=== PATIENT | male | born 1975 | race Caucasian/White ===

== ENCOUNTER 2018-11-07 11:56 | Emergency (ER) | payer MEDICARE ==
[~2018-11-07] VITALS: Ht 185.4 cm; Wt 111.4 kg
[2018-11-07 11:59] VITALS: TEMP 97.6
[2018-11-07 12:42] LABS: HEMATOCRIT 44.2 % (42.0-52.0); HEMOGLOBIN 14.3 g/dl (13.5-18.0); MEAN CELL VOLUME 93 fl (80.0-100.0); MEAN CORPUSCULAR HEMOGLOBIN 30 pg (27.0-31.0); MEAN CORPUSCULAR HGB CONC 32 g/dl (33.0-37.0); MEAN PLATELET VOLUME 10.9 fl (7.4-10.4); PLATELET COUNT 240 K/mm3 (130-400); RED BLOOD COUNT 4.73 M/mm3 (4.20-5.60); REDCELL DISTRIBUTION WIDTH-CV 13.2 % (11.5-14.5)
[2018-11-07 12:47] LABS: ALANINE AMINOTRANSFERASE 32 U/L (21-72); ALKALINE PHOSPHATASE 73 U/L (50-136); ANION GAP 12 mmol/L (7-16); AST,SGOT 25 U/L (15-37); BILIRUBIN,TOTAL 0.3 mg/dL (0.0-1.0); BLOOD UREA NITROGEN 16 mg/dL (9-20); CALCIUM 9.1 mg/dL (8.4-10.2); CARBON DIOXIDE 23 mmol/L (22-30); CHLORIDE 105 mmol/L (98-107); CREATININE, serum 1.04 (0.66-1.25); GLUCOSE 110 mg/dL (74-106); LIPASE 80 U/L (23-300); POTASSIUM 3.9 mmol/L (3.4-5.0); SODIUM 140 mmol/L (137-145); TOTAL PROTEIN 7.4 gm/dL (6.4-8.2)
[2018-11-07 13:01] LABS: TROPONIN-I < 0.012 ng/mL (0.000-0.035)
[2018-11-07] MEDS ORDERED: PREDNISONE20 MG PO (13:08)
[2018-11-07] MEDS ORDERED: PROAIR HFA0.09 MG/AC IH (13:08)
[2018-11-07] MEDS ORDERED: FLOVENT 110MCG7.9 GM IH (13:09)
[2018-11-07 13:25] LABS: INR 0.9 (0.8-3.0); PROTHROMBIN TIME 10.4 SECONDS (9.7-12.8)
[2018-11-07 13:35] LABS: BASOPHIL 1 % (0-2); EOSINOPHIL 5 % (0-4); LYMPHOCYTE 47 % (20.0-51.0); NEUTROPHILS 41 % (42.0-75.2); PLATELET ESTIMATE NORMAL (NORMAL)
[2018-11-07 13:41] LABS: D-DIMER < 200.00 ng/mLDDu (200-230)
[2018-11-07] MEDS ORDERED: DOXYCYCLINE 10100 MG PO (15:07)
[2018-11-07 17:45] VITALS: BP 113/70; PULSE 56
== END 2018-11-07 17:50 | disposition home or self-care (01) ==
LOC: COL.ER 11:56
PROVIDERS: Emergency Medicine
DX: R06.02 Shortness of breath (principal); F17.210 Nicotine dependence, cigarettes, uncomplicated
CPT/HCPCS: J2930; J3475; J7030

== ENCOUNTER 2018-11-15 12:23 | Day surgery (SDC) | payer MEDICARE ==
[2018-11-15] VITALS (7 sets, daily range): BP systolic 100–114; BP diastolic 70–78; PULSE 51–57; TEMP 97.8
[~2018-11-15] VITALS: Ht 185.4 cm; Wt 113.0 kg
[~2018-11-15 12:23] MED LIST: DOXYCYCLINE 10100 MG PO; FLOVENT 110MCG7.9 GM IH; PREDNISONE20 MG PO; PROAIR HFA0.09 MG/AC IH
[2018-11-15] MEDS ORDERED: PROAIR HFA0.09 MG/AC IH (12:34)
[2018-11-15] MEDS ORDERED: DEPAKOTE ER 50500 MG PO (12:36)
[2018-11-15] MEDS ORDERED: NATURAL POTASS595 MG PO (12:36)
[2018-11-15] MEDS ORDERED: LYRICA 150MG C150 MG PO (12:38)
[2018-11-15] MEDS ORDERED: AMITRIPTYLINE H50 M1 PO (12:39)
[2018-11-15] MEDS ORDERED: DOSTINEX0.5 MG/TAB PO (12:42)
[2018-11-15] MEDS ORDERED: INDERAL LA120 MG PO (12:43)
[2018-11-15] MEDS ORDERED: AIMOVIG AU70 MG/1 M1 SQ (12:43)
[2018-11-15] MEDS ORDERED: PERCOCET 325 MG1 TA3 PO (12:44)
[2018-11-15] MEDS ORDERED: ZYRTEC 10MG10 MG PO (12:45)
[2018-11-15] MEDS ORDERED: PRILOSEC 20MG20 MG PO (12:45)
[2018-11-15] MEDS ORDERED: ASPIRIN E.C. 8181 MG PO (12:45)
[2018-11-15] MEDS ORDERED: PLAVIX 75MG TAB75 MG PO (12:46)
[2018-11-15 13:27] LABS: HEMATOCRIT 43.7 % (42.0-52.0); HEMOGLOBIN 14.3 g/dl (13.5-18.0); MEAN CELL VOLUME 92 fl (80.0-100.0); MEAN CORPUSCULAR HEMOGLOBIN 30 pg (27.0-31.0); MEAN CORPUSCULAR HGB CONC 33 g/dl (33.0-37.0); MEAN PLATELET VOLUME 10.9 fl (7.4-10.4); PLATELET COUNT 217 K/mm3 (130-400); RED BLOOD COUNT 4.74 M/mm3 (4.20-5.60); REDCELL DISTRIBUTION WIDTH-CV 13.4 % (11.5-14.5)
[2018-11-15 13:38] LABS: CALCIUM 9.2 mg/dL (8.4-10.2); INR 0.9 (0.8-3.0); POTASSIUM 4.2 mmol/L (3.4-5.0); PROTHROMBIN TIME 10.4 SECONDS (9.7-12.8)
--- NOTE | 2018-11-15 14:25 | NUR ---
SEE MERGE DOCUMENTATION FOR MEDICATION ADMINISTRATION TIMES AND INTRA/POST PROCEDURE SEDATION ASSESSMENTS.
--- NOTE | 2018-11-15 17:00 | NUR ---
Discharge instructions were reviewed with pt/family. Pt/family voice understanding. Pt up and ambulating in and around the unit with no complications. Pt tolerating intake with no N/V. Pt voided with no complications. IV was discontinued with catheter tip intact, no phlebitis or infiltration. Pt was discharged via w/c to the care of family in private vehicle with discharge instructions in hand.
== END 2018-11-15 17:45 | disposition home or self-care (01) ==
LOC: COL.CAR 12:23
PROVIDERS: Internal Medicine Interventional Cardiology
DX: I20.9 Angina pectoris, unspecified (principal); R94.39 Abnormal result of other cardiovascular function study; F17.210 Nicotine dependence, cigarettes, uncomplicated; Z91.018 Allergy to other foods; Z88.8 Allergy status to other drugs, medicaments and biological substances; Z82.49 Family history of ischemic heart disease and other diseases of the circulatory system
CPT/HCPCS: J1644; J2250; J3010; Q9967

== ENCOUNTER 2019-09-30 17:07 | Inpatient (IN) | payer MEDICARE ==
[~2019-09-30] VITALS: Ht 185.4 cm; Wt 128.4 kg
[~2019-09-30 17:07] MED LIST changes: +AIMOVIG AU70 MG/1 M1 SQ; +AMITRIPTYLINE H75 M1 PO; +ASPIRIN E.C. 8181 MG PO; +DEPAKOTE ER 50500 MG PO; +DOSTINEX0.5 MG/TAB PO; +INDERAL LA120 MG PO; +LYRICA 150MG C150 MG PO; +NATURAL POTASS595 MG PO; +PERCOCET 325 MG1 TA3 PO; +PLAVIX 75MG TAB75 MG PO; +PRILOSEC 20MG20 MG PO; +ZYRTEC 10MG10 MG PO
[2019-09-30 17:53] LABS: BASO # 0.1 (0.0-0.2); BASO % 0.7 % (0.0-2.0); EOS # 0.7 (0.0-0.7); EOS % 6.3 % (0-4.0); GRAN # 5.5 (1.4-6.5); GRAN % 49.2 % (42.2-75.2); HEMATOCRIT 43.3 % (42.0-52.0); HEMOGLOBIN 14.1 g/dl (13.5-18.0); LYMPH # 3.9 (1.2-3.4); LYMPH % 35.1 % (20.0-51.0); MEAN CELL VOLUME 91 fl (80.0-100.0); MEAN CORPUSCULAR HEMOGLOBIN 30 pg (27.0-31.0); MEAN CORPUSCULAR HGB CONC 33 g/dl (33.0-37.0); MEAN PLATELET VOLUME 9.8 fl (7.4-10.4); MONO # 0.9 (0.1-0.6); MONO % 7.7 % (1.7-9.3); PLATELET COUNT 308 K/mm3 (130-400); RED BLOOD COUNT 4.76 M/mm3 (4.20-5.60); REDCELL DISTRIBUTION WIDTH-CV 13.1 % (11.5-14.5)
[2019-09-30 18:14] LABS: ERYTHROCYTE SEDIMENTATION RATE 48 mm/hr (0-15)
[2019-09-30 18:20] LABS: ALBUMIN 4.2 gm/dL (3.5-5.0); BILIRUBIN,TOTAL 0.5 mg/dL (0.0-1.0); CALCIUM 9.4 mg/dL (8.4-10.2); CREATININE, serum 1.1 (0.66-1.25); POTASSIUM 4.4 mmol/L (3.4-5.0); TOTAL PROTEIN 8.4 gm/dL (6.4-8.2)
[2019-09-30] MEDS ORDERED: CRESTOR20 MG PO (19:12)
[2019-09-30] MEDS ORDERED: TOPROL XL 50MG50 MG PO (19:12)
[2019-09-30] MEDS ORDERED: 00186-0370-20 IH (19:13)
--- NOTE | 2019-09-30 21:00 | NUR ---
Admitted to room 342 via wheelchair from ED. Admission assessment complete. VS stable. Oriented to room and policy. New orders initiated. Plan of care discussed for pain control/elevating extremity/antibiotic therapy. Verbalizes understanding-denies questions/concerns. Left AC 18g IV with NS@125ml/hr-no redness/swelling noted. Left lower extremity with erythema/warm to touch/edema/with one area weeping serosanguineous fluid. Currently rating pain 7/10-described as constant throbbing with itermittent sharpness. Morphine 2mg given IV per dr order as well as tylenol. Will monitor effectiveness. Call light in reach. Will monitor.
[2019-09-30] MEDS ORDERED: RT ADVAIR 228 DISKUS INH (21:09)
--- NOTE | 2019-09-30 21:40 | NUR ---
Called to nurses station rating pain 7/10 post morphine administration. 2nd dose of Morphine 2mg given per dr order. Denies nausea/shortness of breath. Call light in reach will monitor.
[2019-09-30 21:45] VITALS: BP 113/56; PULSE 72; TEMP 98.4
--- NOTE | 2019-09-30 22:30 | NUR ---
Resting eyes closed-audible snoring. No s/s of pain noted. Will monitor.
[2019-09-30 23:36] VITALS: BP 115/57; PULSE 66; TEMP 97.7
[2019-10-01] MEDS ORDERED: LYRICA300 MG PO (00:15)
[2019-10-01] MEDS ORDERED: MULTI VITAMINS1 TAB PO (00:17)
[2019-10-01 04:03] VITALS: BP 127/69; PULSE 74; TEMP 98
--- NOTE | 2019-10-01 04:50 | NUR ---
Rested well later this shift. Pain controlled with IV morphine-received doses this shift. Denies nausea/shortness of breath. New admit orders initiated. IV to left [id number] to infuse NS@125ml/hr. Encouraged to elevate on pillows. Verbalizes understanding. Call light in reach. Will monitor.
--- NOTE | 2019-10-01 07:45 | NUR ---
PATIENT FALLING ALSEEP DURING BREATHING TREATMENTS AND KEEPS DROPPING THE NEBULIZER. RT AND NURSING AT BEDSIDE. FOREST FIRE FIGHTERS DISPATCHER ALSO REPORTS PATIENT WAS VERY SEDATED AND DIDN'T EVEN WAKE DURING AM LAB DRAWS.
[2019-10-01 07:53] LABS: HEMATOCRIT 42.4 % (42.0-52.0); HEMOGLOBIN 13.4 g/dl (13.5-18.0); MEAN CELL VOLUME 93 fl (80.0-100.0); MEAN CORPUSCULAR HEMOGLOBIN 30 pg (27.0-31.0); MEAN CORPUSCULAR HGB CONC 32 g/dl (33.0-37.0); MEAN PLATELET VOLUME 10.4 fl (7.4-10.4); PLATELET COUNT 283 K/mm3 (130-400); RED BLOOD COUNT 4.55 M/mm3 (4.20-5.60); REDCELL DISTRIBUTION WIDTH-CV 13.3 % (11.5-14.5)
--- NOTE | 2019-10-01 08:00 | NUR ---
PATIENT IS ORIENTED BUT VERY DROWSY. PATIENT REPORTS THIS IS NORMAL FOR HIM DUE TO THE DROWSINESS CAUSED BY A LOT OF HIS HOME MEDICATIONS. VSS. PATIENT C/O DISCOMFORT IN LLE WITH ACTIVITY. PATIENT JUST AMBULATED TO BATHROOM TO VOID. LLE IS VERY RED, SWOLLEN AND WEEPY. PATIENT GETTING IV ABX FOR CELLULITIS IN THE LLE. POSITIVE PEDAL PULSES TO BLE. PATIENT DENIES C/O N/V. IV FLUIDS INFUSING INTO LEFT AC VIA PUMP. BREAKFAST TRAY AT BEDSIDE. AM MEDS GIVEN. HEAD TO TOE ASSESSMENT COMPLETE. PATIENT FALLING BACK TO SLEEP AND SNORING LOUDLY. CALL LIGHT IN REACH. NO OTHER NEEDS.
--- NOTE | 2019-10-01 08:00 | NUR ---
PATIENT FELL ASLEEP SEVERAL TIMES WHILE CRYPTOGRAPHIC VULNERABILITY ANALYST WAS TRYING TO GET THE PATIENT'S VITALS. PATIENT IS VERY DROWSY AND HAVING A HARD TIME STAYING AWAKE DURING ADL.
[2019-10-01 08:02] VITALS: BP 101/54; PULSE 86; TEMP 97.5
[2019-10-01 08:33] LABS: CALCIUM 8.7 mg/dL (8.4-10.2); CREATININE, serum 1.06 (0.66-1.25); POTASSIUM 4.1 mmol/L (3.4-5.0)
[2019-10-01 08:34] LABS: BAND 2 % (0-10); EOSINOPHIL 3 % (0-4); LYMPHOCYTE 37 % (20.0-51.0); PLATELET ESTIMATE NORMAL (NORMAL)
[2019-10-01 08:35] LABS: NEUTROPHILS 50 % (42.0-75.2)
--- NOTE | 2019-10-01 09:40 | NUR ---
PATIENT CALLED OUT ASKING FOR IV MORPHINE HOWEVER HE IS VERY DROWSY AND CAN'T STAY AWAKE. PATIENT CAN BE HEARD SNORING AT THE NURSES STATION AT TIMES. PATIENT WAS REMINDED HE WAS GIVEN SCHEDULED LYRICA 300MG THIS AM.
--- NOTE | 2019-10-01 10:30 | NUR ---
PATIENT SOUNDS ASLEEP AND SNORING WHEN NURSING ENTERED ROOM TO HAVE IV ABX. PATIENT DID NOT WAKE THE WHOLE TIME NURSING WAS IN THE ROOM AND HANGING IV MEDS.
--- NOTE | 2019-10-01 11:00 | NUR ---
WHEN ARROUSED BY S.S. PATIENT MENTIONED WANTING PAIN MEDS, HOWEVER, PATIENT FALLS BACK TO SLEEP RIGHT AWAY. NOTIFIED HOSPITALIST OF SOMULENT BEHAVIOR AND B/P OF 101/54. WILL CONTINUE TO MONITOR AT THIS TIME. PATIENT NOW SLEEPING
[2019-10-01 12:00] VITALS: BP 124/66; PULSE 68; TEMP 97.9
--- NOTE | 2019-10-01 12:30 | NUR ---
PATIENT NOW SITTING UP IN BED, MORE AWAKE, WITH LUNCH TRAY. PATIENT AMBULATED TO BATHROOM TO VOID. PATIENT REPORTING PAIN IN LLE AT 6-7. GAVE PRN IV MORPHINE. PATIENT EATING LUNCH WITH NO OTHER NEEDS.
--- NOTE | 2019-10-01 12:47 | NUR ---
SW met with patient about DC. Patient reports that he resides in [place] with his Bria who is also his DPOA. Patient shares that his PCP is Pam Batista in [facility] in [place]. Patient reports that he obtains his medications from [facility] in . Patient reports that he has transportation. Denies having a DPOA and Denies the need for HHS. No additonal concerns assessed. SW educated on supports and service in his community. Nothing Follows.
[2019-10-01 16:25] VITALS: BP 129/64; PULSE 62; TEMP 97.6
[2019-10-01 21:15] VITALS: BP 124/51; PULSE 75; TEMP 97.9
[2019-10-02 00:03] VITALS: BP 126/60; PULSE 66; TEMP 98
--- NOTE | 2019-10-02 01:00 | NUR ---
Rested well this shift. Left lower extremity elevated on pillows this shift. Appears to be less edematous than last NOC. Denies nausea/shortness of breath. VS remainted stable. Received Morphine x1 this shift for pain. Has tolerated PO/voiding without difficulty. Denies needs. Call light in reach. Will monitor.
[2019-10-02 03:09] VITALS: BP 151/74; PULSE 54; TEMP 98
[2019-10-02 06:55] LABS: HEMOGLOBIN 13.8 g/dl (13.5-18.0); MEAN CELL VOLUME 93 fl (80.0-100.0); MEAN CORPUSCULAR HEMOGLOBIN 30 pg (27.0-31.0); MEAN CORPUSCULAR HGB CONC 32 g/dl (33.0-37.0); MEAN PLATELET VOLUME 11.9 fl (7.4-10.4); PLATELET COUNT 265 K/mm3 (130-400); RED BLOOD COUNT 4.61 M/mm3 (4.20-5.60); REDCELL DISTRIBUTION WIDTH-CV 13.5 % (11.5-14.5)
[2019-10-02 07:11] LABS: CREATININE, serum 1.1 (0.66-1.25); POTASSIUM 4.4 mmol/L (3.4-5.0)
[2019-10-02 07:36] LABS: BAND 1 % (0-10); EOSINOPHIL 8 % (0-4); LYMPHOCYTE 42 % (20.0-51.0); METAMYELOCYTE 2 % (0-0); MYELOCYTE 1 % (0-0); NEUTROPHILS 41 % (42.0-75.2); PLATELET ESTIMATE NORMAL (NORMAL)
[2019-10-02 07:56] VITALS: BP 126/60; PULSE 88; TEMP 97.6
--- NOTE | 2019-10-02 08:00 | NUR ---
PATIENT IS MORE AWAKE THIS AM. VSS. RATES PAIN IN LLE AT 4-5 AND REPORTS HIS PAIN TOLERABLE. LLE IS STILL RED, WARM AND SWOLLEN. +3 EDEMA TO LLE. REDNESS IS NOW LESS THAN THE MARKED BOARDERS. WBC CAME DOWN SLIGHTLY TO 13.0 TODAY. AFEBRILE. NO C/O N/V OR DIARRHEA. POSITIVE PEDAL PULSES TO BLE. PATIENT GETTING IV VANCO & ZOSYN. POSSIBLE PICC PLACEMENT TODAY FOR OUTPATIENT ABX. BLOOD CULTURES PENDING. HEAD TO TOE ASSESSMENT COMPLETE. PATIENT EATING BREAKFAST. AM MEDS GIVEN. NO OTHER NEEDS. CALL LIGHT IN REACH.
[2019-10-02 08:53] LABS: PATHOLOGY DIFF REVIEW OK
[2019-10-02] MEDS ORDERED: NORCO 325 MG-51 TAB PO (10:17)
--- NOTE | 2019-10-02 10:20 | NUR ---
HOSPITALIST CARE TEAM ROUNDING. WOUND CULTURE-STAPH. PATIENT CLEARED BY HOSPITALIST TO DISCHARGE HOME ON ORAL ABX. STILL WAITING ON BC. APPLIED GAUZE & SOFT ROLL TO LLE KATIE SIZED OPEN AREA THAT IS OOZING PER HOSPITALIST. WAS ON SPEAKER PHONE DURING ROUNDS. NO OTHER NEEDS AT THIS TIME. AWAITING .
--- NOTE | 2019-10-02 11:29 | NUR ---
Housemaid attended clinical rounds with the team and patient will likely discharge later today. Patient would like to set up PCP closer to [place]. Patient would like to get set up with Dr. Rivera at [facility]. KAI contacted Dr. Rivera's office and was advised patient would need to complete a new patient form prior to making an appointment. KAI provided this form to patient who advised his will fill it out when she gets here. KAI advised patient that she can return the form to Dr. Rivera via fax upon completion. KAI was advised by Dr. Rivera's office that they may not respond to the form today but would follow up with patient as soon as possible once the form is completed. SW to continue to follow.
[2019-10-02 11:41] VITALS: BP 115/71; PULSE 78; TEMP 98.3
[2019-10-02] MEDS ORDERED: DOXYCYCLINE 10100 MG PO (13:41)
--- NOTE | 2019-10-02 16:15 | NUR ---
PATIENT DISCHARGING HOME VIA WC TO PERSONAL VEHICLE WITH GF. GAVE DISCHARGE INSTRUCTIONS, PRESCRIPTION AND PATIENT TO CALL FOR PCP F/U APT. DC'D LEFT AC IV, COVERED SITE WITH GAUZE & TAPE. DC'D TELE. PATIENT DRESSED AND PERSONAL BELONGINGS SENT.
== END 2019-10-02 16:15 | disposition home or self-care (01) | DRG 603 ==
LOC: COL.ER 17:07 → SURG 18:46
PROVIDERS: Emergency Medicine; Nurse Practitioner Family; ADMIT Family Medicine
DX: L03.116 Cellulitis of left lower limb (principal); G40.909 Epilepsy, unspecified, not intractable, without status epilepticus; G43.909 Migraine, unspecified, not intractable, without status migrainosus; I10 Essential (primary) hypertension; J45.909 Unspecified asthma, uncomplicated; E66.9 Obesity, unspecified; F17.210 Nicotine dependence, cigarettes, uncomplicated; E78.5 Hyperlipidemia, unspecified; D35.2 Benign neoplasm of pituitary gland; Z79.82 Long term (current) use of aspirin
CPT/HCPCS: 99223-AI; 99231-AI; 99239; J1650; J2270; J2405; J2543; J3370; J7030; J7040

== ENCOUNTER 2019-10-07 17:32 | Observation (INO) | payer MEDICARE ==
[~2019-10-07] VITALS: Ht 185.4 cm; Wt 125.2 kg
[~2019-10-07 17:32] MED LIST changes: +00186-0370-20 IH; +CRESTOR20 MG PO; +LYRICA300 MG PO; +MULTI VITAMINS1 TAB PO; +NORCO 325 MG-51 TAB PO; +RT ADVAIR 228 DISKUS INH; +TOPROL XL 50MG50 MG PO
[2019-10-07 18:52] LABS: ALBUMIN 4.1 gm/dL (3.5-5.0); BILIRUBIN,TOTAL 0.3 mg/dL (0.0-1.0); C-REACTIVE PROTEIN 1.6 mg/dL (0.0-0.9); CALCIUM 9.3 mg/dL (8.4-10.2); CREATININE, serum 0.99 (0.66-1.25); TOTAL PROTEIN 8.2 gm/dL (6.4-8.2)
[2019-10-07 19:28] LABS: HEMATOCRIT 42.1 % (42.0-52.0); HEMOGLOBIN 13.5 g/dl (13.5-18.0); MEAN CELL VOLUME 92 fl (80.0-100.0); MEAN CORPUSCULAR HEMOGLOBIN 30 pg (27.0-31.0); MEAN CORPUSCULAR HGB CONC 32 g/dl (33.0-37.0); PLATELET COUNT 294 K/mm3 (130-400); RED BLOOD COUNT 4.56 M/mm3 (4.20-5.60); REDCELL DISTRIBUTION WIDTH-CV 13.6 % (11.5-14.5)
[2019-10-07 20:02] LABS: ERYTHROCYTE SEDIMENTATION RATE 8 mm/hr (0-15)
[2019-10-07 20:10] LABS: EOSINOPHIL 4 % (0-4); LYMPHOCYTE 19 % (20.0-51.0); NEUTROPHILS 74 % (42.0-75.2)
[2019-10-07 20:13] VITALS: BP 125/60; PULSE 78; TEMP 97.7
[2019-10-07 20:14] LABS: HYPOCHROMIA 1+; PLATELET ESTIMATE NORMAL (NORMAL)
[2019-10-07 20:31] LABS: VALPROIC ACID (DEPAKENE) 60.8 ug/mL (50.0-100.0)
[2019-10-08 05:29] VITALS: BP 127/58; PULSE 64; TEMP 97.7
--- NOTE | 2019-10-08 06:03 | NUR ---
PATIENT CAME TO THE FLOOR FROM THE ED. HE HAS HIS LEFT LEG WRAPPED IN A KIARA BANDAGE THAT IS CLEAN DRY AND INTACT. PATIENT STATED THAT HE WAS TIRED BECAUSE HE HADNT SLEPT MUCH FOR THE PAST 4 DAYS. PATIENT HAS A HISTORY OF SLEEP APNEA BUT DOES NOT HAVE HIS HOME CPAP HERE. PATIENT SNORED WHEN HE WAS ASLEEP AND HE SLEPT HARD. X1 DOSE OF PRN PAIN MEDICATION WAS GIVEN TO THE PATIENT FOR PAIN BEFORE BEDTIME. HIS IV IS INFUSING IN HIS LEFT WRIST WITH NORMAL SALINE AND ANTIBIOTIC. PATIENT DENIES ANY NEEDS AT THIS TIME. WILL REPORT TO DAY SHIFT.
--- NOTE | 2019-10-08 07:17 | NUR ---
Report rcvd from RGETTA Garces
[2019-10-08 07:32] VITALS: BP 111/58; PULSE 74; TEMP 97.5
[2019-10-08 09:57] LABS: CALCIUM 8.9 mg/dL (8.4-10.2); CREATININE, serum 0.88 (0.66-1.25); POTASSIUM 4.4 mmol/L (3.4-5.0)
[2019-10-08 09:59] LABS: BASO # 0.1 (0.0-0.2); BASO % 0.8 % (0.0-2.0); EOS # 0.5 (0.0-0.7); EOS % 4.9 % (0-4.0); GRAN # 4.5 (1.4-6.5); GRAN % 44.8 % (42.2-75.2); HEMATOCRIT 43.3 % (42.0-52.0); HEMOGLOBIN 13.8 g/dl (13.5-18.0); LYMPH # 4.4 (1.2-3.4); LYMPH % 43.6 % (20.0-51.0); MEAN CELL VOLUME 93 fl (80.0-100.0); MEAN CORPUSCULAR HEMOGLOBIN 30 pg (27.0-31.0); MEAN CORPUSCULAR HGB CONC 32 g/dl (33.0-37.0); MEAN PLATELET VOLUME 10.4 fl (7.4-10.4); MONO # 0.6 (0.1-0.6); MONO % 5.4 % (1.7-9.3); PLATELET COUNT 291 K/mm3 (130-400); RED BLOOD COUNT 4.67 M/mm3 (4.20-5.60); REDCELL DISTRIBUTION WIDTH-CV 13.7 % (11.5-14.5)
--- NOTE | 2019-10-08 10:04 | NUR ---
PT LEG ASSESSED, WOUNDS ARE DRY, THERE IS SWELLING TO THE LEFT ANKLE AND FOOT. PAIN IN THE ANKLE AT 7/10. LEG IS RED BELOW LOWER SCABBING, BUT STOPS RIGHT AT THE SOCK LINE. DR. SUÁREZ CALLED, AND INFORMED OF THE LACK OF WEEPING NOTED ON EARLIER ASSESSMENTS. LEG WAS WRAPPED WITH KERLIX AND KIARA WRAP. THERE WAS NO FLUID ON THE KERLIX AT ALL. PT IS AFEBRILE, HAS NO NAUSEA, VOMITTING OR DIARRHEA.
[2019-10-08 12:24] VITALS: BP 137/67; PULSE 79; TEMP 98.4
[2019-10-08 16:12] VITALS: BP 120/78; PULSE 69; TEMP 97.8
--- NOTE | 2019-10-08 18:45 | NUR ---
Pt REPORT RECEIVED FROM MARIA DOLORES GLYNN AT BEDSIDE. Pt IS RESTING IN BED WITH TV ON AND CALL LIGHT WITHIN REACH. WILL CONTINUE TO MONITOR.
[2019-10-08 19:35] VITALS: BP 107/58; PULSE 70; TEMP 97.9
--- NOTE | 2019-10-08 19:39 | NUR ---
REPORT GIVEN TO GRETTA RICHARDSON.
[2019-10-08 23:28] VITALS: BP 119/55; PULSE 76; TEMP 98.1
--- NOTE | 2019-10-09 01:11 | NUR ---
Pt has had a quiet shift and has spent his time in bed watching tv. Pt continues to have no drainage noted from his BLE. Pt remains A&Ox4 in stable condition with no s/s of distress noted. Pt IV Zosyn timing was reset by this senior medical writer contacting pharmacy due to the fact that the afternoon dose was started late. Pt has call light within reach with beverages and personal items located on his bedside table. Pt communicates without difficulty and can easily express his wants/needs. Pt is currently resting in bed with his eyes closed and a regular rate and rhythym noted to his respiratory pattern. Will continue to monitor.
[2019-10-09 03:34] VITALS: BP 109/62; PULSE 50; TEMP 97.6
--- NOTE | 2019-10-09 06:27 | NUR ---
Pt resting in bed with eyes closed and no s/s of distress noted. Call light within reach and IV fluids infusing without complication. Will give bedside report to dayshift nurse.
[2019-10-09 07:28] VITALS: BP 107/60; PULSE 60; TEMP 97.5
[2019-10-09] MEDS ORDERED: CEPHALEXIN500 M1 PO (09:00)
--- NOTE | 2019-10-09 10:41 | NUR ---
KAI met with the patient to complete initial intake. The patient lives in [place] with his fiance, kids and his mother. The patient has a CPAP and receives supplies from [email or web address] in [place] and the patient is independent with ADLs. The patient's PCP is Pam Mcneil APRN and patient receives medications from [facility] in [place]. The patient does not have advanced directives in the EMR and was not interested in DPOA-HC form. The patient plans to return home at discharge. KAI and Nurse Arlin Station Cook met with the patient to discuss his status and to explain the CHEN forms. The patient understood and signed both forms. Will continue to monitor for needs.
[2019-10-09 11:41] VITALS: BP 126/73; PULSE 96; TEMP 97.6
--- NOTE | 2019-10-09 12:13 | NUR ---
First visit from the supervisor shuttle preparation. No needs right now.
--- NOTE | 2019-10-09 12:46 | NUR ---
PT READY FOR DISCHARGE. WAITING ON APPOINTMENT TO BE SCHEDULED WITH DR. LE IN [place].
--- NOTE | 2019-10-09 14:08 | NUR ---
PT HAS A FOLLOW UP APPOINTMENT SCHEDULED ON 10/18/19 AT 4PM. PT IS AGREEABLE TO THIS. PT WILL NOW DISCHARGE.
--- NOTE | 2019-10-09 14:14 | NUR ---
Discharge today, 10/08. The patient was wanting to establish with care with a new PCP. The patient chose Dr. Hughes at [facility]. KAI contacted [facility] with [place]. The patient has an appointment on 10/17 at 1600. The patient was agreeable to this time. KAI collaborated the above information with the patient's nurse and executive community planning.
== END 2019-10-09 15:38 | disposition home or self-care (01) ==
LOC: COL.ER 17:32 → MEDICAL 18:13
PROVIDERS: Emergency Medicine; Nurse Practitioner Family; ADMIT Internal Medicine
DX: L03.116 Cellulitis of left lower limb (principal); I10 Essential (primary) hypertension; E78.5 Hyperlipidemia, unspecified; G40.909 Epilepsy, unspecified, not intractable, without status epilepticus; G43.909 Migraine, unspecified, not intractable, without status migrainosus; D49.7 Neoplasm of unspecified behavior of endocrine glands and other parts of nervous system; J45.909 Unspecified asthma, uncomplicated; F17.210 Nicotine dependence, cigarettes, uncomplicated; Z79.82 Long term (current) use of aspirin; Z79.891 Long term (current) use of opiate analgesic; Z79.51 Long term (current) use of inhaled steroids; Z88.8 Allergy status to other drugs, medicaments and biological substances
CPT/HCPCS: 99222-AI; G0378; J1650; J2405; J2543; J3010; J7030

== ENCOUNTER 2020-12-04 19:18 | Emergency (ER) | payer MEDICARE ==
[~2020-12-04] VITALS: Ht 2.5 cm; Wt 122.7 kg
[~2020-12-04 19:18] MED LIST changes: +CEPHALEXIN500 M1 PO
[2020-12-04 20:08] VITALS: TEMP 98.8
[2020-12-04] MEDS ORDERED: CYMBALTA 60MG60 MG PO (20:16)
[2020-12-04 21:23] LABS: COLLECTION METHOD CLEAN CATCH
[2020-12-04 21:27] LABS: HEMATOCRIT 45.4 % (42.0-52.0); HEMOGLOBIN 14.9 g/dl (13.5-18.0); MEAN CELL VOLUME 94 fl (80.0-100.0); MEAN CORPUSCULAR HEMOGLOBIN 31 pg (27.0-31.0); MEAN CORPUSCULAR HGB CONC 33 g/dl (33.0-37.0); MEAN PLATELET VOLUME 10.2 fl (7.4-10.4); PLATELET COUNT 310 K/mm3 (130-400); RED BLOOD COUNT 4.81 M/mm3 (4.20-5.60); REDCELL DISTRIBUTION WIDTH-CV 13.9 % (11.5-14.5)
[2020-12-04 21:30] LABS: PH 6 (5-8); SQUAMOUS EPITHELIAL 0-2 /hpf; URINE APPEARANCE Clear; URINE BACTERIA None Seen /hpf; URINE BILIRUBIN Negative (NEGATIVE); URINE BLOOD Negative (NEGATIVE); URINE COLOR Yellow; URINE GLUCOSE Negative (NEGATIVE); URINE KETONE Negative (NEGATIVE); URINE LEUKOCYTE ESTERASE Negative (NEGATIVE); URINE NITRATE Negative (NEGATIVE); URINE PROTEIN(semi-quant) Negative (NEGATIVE); URINE RBC 0-2 /hpf; URINE UROBILINOGEN Negative (NEGATIVE)
[2020-12-04 21:41] LABS: ALBUMIN 4.5 gm/dL (3.5-5.0); BILIRUBIN,TOTAL 0.3 mg/dL (0.0-1.0); CALCIUM 9.9 mg/dL (8.4-10.2); CREATININE, serum 1.13 (0.66-1.25); TOTAL PROTEIN 8.1 gm/dL (6.4-8.2)
[2020-12-04 22:19] LABS: BAND 1 % (0-10); BASOPHIL 1 % (0-2); EOSINOPHIL 4 % (0-4); LYMPHOCYTE 46 % (20.0-51.0); NEUTROPHILS 44 % (42.0-75.2); PLATELET ESTIMATE NORMAL (NORMAL)
[2020-12-05] MEDS ORDERED: PERCOCET 325 MG1 TA2 PO (00:46)
[2020-12-05 01:02] VITALS: BP 152/84; PULSE 82
== END 2020-12-05 01:02 | disposition home or self-care (01) ==
LOC: COL.ER 19:18
PROVIDERS: Nurse Practitioner
DX: K42.9 Umbilical hernia without obstruction or gangrene (principal); F32.9 Major depressive disorder, single episode, unspecified; I10 Essential (primary) hypertension; F17.210 Nicotine dependence, cigarettes, uncomplicated; Z79.899 Other long term (current) drug therapy
CPT/HCPCS: J1170; J1885; J2405; J7030; Q9967

== ENCOUNTER 2022-07-31 09:32 | Day surgery (SDC) | payer MEDICARE ==
[~2022-07-31] VITALS: Ht 185.4 cm; Wt 136.8 kg
[~2022-07-31 09:32] MED LIST changes: +CYMBALTA 60MG60 MG PO; +PERCOCET 325 MG1 TA2 PO
[2022-07-31 10:20] VITALS: BP 123/79; PULSE 62; TEMP 97
[2022-07-31] MEDS ORDERED: FORTAMET500 M1 PO (10:29)
[2022-07-31] MEDS ORDERED: MOBIC15 MG PO (10:29)
[2022-07-31] MEDS ORDERED: BOTOX 100100 U/VIAL IM (10:30)
[2022-07-31] MEDS ORDERED: PERCOCET 325 MG1 TAB PO (10:30)
[2022-07-31] MEDS ORDERED: ZOLOFT 100MG100 MG PO (10:31)
[2022-07-31] MEDS ORDERED: ZANAFLEX 4MG TAB4 MG PO (10:34)
[2022-07-31] MEDS ORDERED: OZEMPIC1 MG/0.71 SQ ×2 (10:35→10:38)
[2022-07-31] MEDS ORDERED: CRESTOR5 MG PO (10:35)
[2022-07-31] MEDS ORDERED: PRIL40 PO (10:37)
[2022-07-31 10:50] VITALS: BP 102/70; PULSE 70; TEMP 97.3
[2022-07-31 11:05] VITALS: BP 113/68; PULSE 69
--- NOTE | 2022-07-31 11:20 | NUR ---
1050-PT TO BAY 3 PER CART FROM PROCEDURE ROOM. PT AMBULATED TO CHAIR WITHOUT DIFFICULTY. REPORT RECEIVED. VS OBTAINED. CALL LIGHT WITHIN REACH. PT DENIES AN NEEDS AT THIS TIME. 1055-PT TOLERATING JUICE AND PUDDING. 1110-IV DC'D AT THIS TIME. DR MOODY IN ROOM TO DISCUSS FINDINGS WITH PT AND HIS . 1115-DISCHARGE EDUCATION COMPLETED WITH PT AND HIS . VERBALIZED UNDERSTANDING OF HOME AND FOLLOW UP CARE. ALL QUESTIONS ANSWERED. DISCHARGE PAPERWORK GIVEN TO PT. PT ABLE TO DRESS SELF WITHOUT ASSISTANCE. 1120-PT OFF UNIT PER WHEELCHAIR. PT DISCHARGED TO HOME WITH PER PERSONAL VEHICLE.
== END 2022-07-31 11:20 | disposition home or self-care (01) ==
LOC: SDCO 09:32
DX: K22.70 Barrett's esophagus without dysplasia (principal); K21.00 Gastro-esophageal reflux disease with esophagitis, without bleeding; K44.9 Diaphragmatic hernia without obstruction or gangrene; E11.9 Type 2 diabetes mellitus without complications; G47.33 Obstructive sleep apnea (adult) (pediatric); Z79.899 Other long term (current) drug therapy; Z79.84 Long term (current) use of oral hypoglycemic drugs; Z87.891 Personal history of nicotine dependence; Z99.81 Dependence on supplemental oxygen
CPT/HCPCS: J2704; J7120